=== PATIENT | male | born 1955 | race Caucasian/White ===

== ENCOUNTER → 2016-10-02 | Outpatient (CLI) | payer BC, MEDICAID | LOC: RAD 13:42 | PROVIDERS: ATTEND Radiology Radiation Oncology | DX: C34.11 Malignant neoplasm of upper lobe, right bronchus or lung (principal) | CPT/HCPCS: 71260; 82565 ==

== ENCOUNTER → 2016-11-26 | Outpatient (CLI) | payer MEDICAID ==
--- NOTE | 2016-11-27 09:46 | RADIOLOGY REPORT (SQ) ---
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 TECHNIQUE: Blood glucose level was verified. Above dose of FDG was injected intravenously. 2-D seg mented attenuation correction images were obtained from the base of the skull to the midthighs. Nonc ontrast CT images were obtained for attenuation correction and fusion with emission images. CT image s were performed without oral or intravenous contrast and are not sensitive for parenchymal lesions. A series of overlapping emission PET images were obtained. Images reviewed and manipulated at [facility] work station by the radiologist. Images stored on PACS. LIMITATIONS: None. FINDINGS: HEAD AND NECK: No areas of abnormal metabolic activity in the soft tissues of the head and neck. CHEST: Between the posterior right 5th and 6th ribs, a small focus of increased uptake is present in the soft tissues of the chest wall, 2 x 1.2 cm in size with SUV 3.4. This is smaller and less metabo lically active than on prior PET-CT 01/17/2016. On today's study there is a new bandlike 2 x 1 cm area of increased uptake along the right hilar surg ical staple line with SUV of 3. This is new compared to prior PET-CT 01/17/2016. There is no abnormal metabolic activity elsewhere in the chest. No mediastinal hypermetabolic nodes. There is a postoperative cavity in the upper right chest with air-fluid level, morphologically stab le compared to previous studies. Mild left lower chest pleural thickening without metabolic activity . ABDOMEN AND PELVIS: No areas of abnormal metabolic activity in the abdomen or pelvis. Expected physi ologic activity is present in the genitourinary system and bowel. PROXIMAL LOWER EXTREMITIES: No areas of abnormal metabolic activity in the soft tissues of the lower extremities. BONES: No areas of abnormal metabolic activity of the bony structures. ADDITIONAL CT FINDINGS: Heavily calcified coronary arteries and carotid bifurcations. Interstitial l suman disease at both lung bases. Liver activity 1.5 SUV, blood pool activity 1.4 SUV OTHER: No other significant findings. IMPRESSION: Decrease extent and intensity of right posterior chest wall hypermetabolic activity betw een the posterior right 5th and 6th ribs as compared to 01/17/2016 New mild bandlike uptake along right hilar surgical staple line TECHNICAL DOCUMENTATION: JOB ID: [id number] [employer]- All Rights Reserved
== END ==
LOC: RAD 18:29
PROVIDERS: ATTEND Radiology Radiation Oncology
DX: C34.11 Malignant neoplasm of upper lobe, right bronchus or lung (principal)
CPT/HCPCS: 78815; A9552

== ENCOUNTER → 2017-03-04 | Outpatient (CLI) | payer BC, MEDICAID ==
--- NOTE | 2017-03-05 11:31 | RADIOLOGY REPORT (SQ) ---
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 TECHNIQUE: Blood glucose level was verified. Above dose of FDG was injected intravenously. 2-D seg mented attenuation correction images were obtained from the base of the skull to the midthighs. Nonc ontrast CT images were obtained for attenuation correction and fusion with emission images. CT image s were performed without oral or intravenous contrast and are not sensitive for parenchymal lesions. A series of overlapping emission PET images were obtained. [facility] by the radiologist. Images stored on PACS. LIMITATIONS: None. FINDINGS: HEAD AND NECK: No areas of abnormal metabolic activity in the soft tissues of the head and neck. CHEST: There is patchy airspace disease in the medial aspect right lower lobe with SUV of 3. There i s minimal airspace disease in the left posterior costophrenic sulcus with SUV of 2.7. Patient is post right upper lobectomy. In the apex of the right hemithorax, a 7 x 6 cm postoperative cavity with air-fluid level is present, non metabolic. In the anterior aspect of the right hemithorax, a 7 x 3 cm loculated fluid pocket is present with a t iny focus of metabolically active tissue along its anterior edge with SUV 2.5. This is similar андрей red to 11/26/2016 PET-CT. Along the right upper lobectomy staple line, a 2 x 1 cm soft tissue density is present with SUV of 2. 6 (was 2 x 1 cm with SUV of 3 on 11/26/2016). In the posterior right chest wall between the 5th and 6th ribs, a 2 x 1.2 cm focus of activity is pre sent with SUV 3.2. This is similar compared to 11/26/2016. Since the prior study, patient has developed a small left pleural effusion with fluid in the posterio r costophrenic sulcus and major fissure. ABDOMEN AND PELVIS: No areas of abnormal metabolic activity in the abdomen or pelvis. Expected physi ologic activity is present in the genitourinary system and bowel. PROXIMAL LOWER EXTREMITIES: No areas of abnormal metabolic activity in the soft tissues of the lower extremities. BONES: No abnormal metabolic activity in the visualized skeleton. ADDITIONAL CT FINDINGS: Obstructive lung disease. Heavily calcified coronary arteries and carotid bi furcations. OTHER: Blood pool activity SUV 1.2, liver background activity SUV 1.3 IMPRESSION: Postoperative changes in the right hemithorax with minimal metabolic activity along the upper lobe staple line, posterior chest wall at the thoracotomy defect, and anterior right chest wall along a loculated pleural fluid pocket. These findings are similar compared to 11/26/2016. New small left pleural effusion with patchy lower lobe airspace disease worrisome for pneumonia. TECHNICAL DOCUMENTATION: JOB ID: [id number]- All Rights Reserved
== END ==
LOC: RAD 18:04
PROVIDERS: ATTEND Radiology Radiation Oncology
DX: C34.11 Malignant neoplasm of upper lobe, right bronchus or lung (principal)
CPT/HCPCS: 78815; A9552